=== PATIENT | male | born 1975 | race Caucasian/White ===

== ENCOUNTER 2016-12-19 06:19 | Emergency (ER) | payer OTHER ==
[2016-12-19 06:35] VITALS: BP 117/76
== END 2016-12-19 07:47 | disposition home or self-care (01) ==
LOC: ED 06:19
DX: S31.31XA Laceration without foreign body of scrotum and testes, initial encounter (principal); E11.9 Type 2 diabetes mellitus without complications; W45.8XXA Other foreign body or object entering through skin, initial encounter; Y93.89 Activity, other specified; Y99.8 Other external cause status; Y92.89 Other specified places as the place of occurrence of the external cause
CPT/HCPCS: J2001